=== PATIENT | male | born 1970 | race Caucasian/White ===

== ENCOUNTER 2019-12-16 14:23 | Observation (INO) ==
[2019-12-16 15:24] LABS: Basophils # 0.1 K/mcL (0.0-0.2); Basophils % 0.5 %; Eosinophils # 0.1 K/mcL (0.0-0.6); Eosinophils % 0.6 %; Hematocrit 40.9 % (37.5-50.1); Hemoglobin 13.5 g/dL (12.9-16.9); Immature Granulocytes % 0.6 % (0-4); Lymphocytes # 1.8 K/mcL (0.6-4.6); Lymphocytes % 16.9 %; Mean Corpuscular Hemoglobin 29.8 pg (28.0-33.3); Mean Corpuscular Volume 90.3 fL (83.0-100.0); Mean Platelet Volume 9.1 fL (9.4-12.4); Neutrophils # 7.6 K/mcL (1.6-8.9); Platelet Count 339 K/mcL (140-400); Red Blood Count 4.53 M/mcL (4.19-5.50); Red Cell Distribution Width 12.7 % (11.5-14.5); Segmented Neutrophils % 72.4 %; White Blood Count 10.5 K/mcL (4.3-11.1)
[2019-12-16 15:25] LABS: Prothrombin Time 11.1 Seconds (9.4-12.1)
[2019-12-16] MEDS ORDERED: *HR* Metoprolol 5 MG/5 ML VIAL IVP ONE (15:26)
[2019-12-16 15:41] LABS: Albumin 4.4 g/dL (3.5-5.7); Albumin/Globulin Ratio 1.6 (1.1-2.2); Bilirubin,Indirect 0.3 mg/dL (0.0-1.0); Bilirubin,Total 0.3 mg/dL (0.3-1.0); Globulin 2.7 g/dL (2.4-3.5); Total Protein 7.1 g/dL (6.4-8.9)
[2019-12-16 15:43] LABS: BUN/Creatinine Ratio 21 (6-26); Blood Urea Nitrogen 18 mg/dL (6-20); Calcium 9.9 mg/dL (8.6-10.3); Carbon Dioxide 25 mEq/L (23-29); Chloride 106 mEq/L (98-107); Glucose 100 mg/dL (70-105); Osmolality,Calculated 294 (280-300); Potassium 3.7 mEq/L (3.5-5.1); Sodium 141 mEq/L (136-145); eGFR For African Americans > 60 (> 60); eGFR For Non-African Americans > 60 (> 60)
[2019-12-16 15:44] LABS: Troponin I < 0.03 ng/mL (< 0.04)
[2019-12-16 15:59] LABS: Magnesium 2.2 mg/dL (1.6-2.6)
[2019-12-16] MEDS ORDERED: Naloxone 0.4 MG/ML INJ IVP PRN (17:14)
[2019-12-16] MEDS ORDERED: amLODIPine 5 MG TABLET PO SCH (17:15)
[2019-12-16] MEDS ORDERED: *HR* Labetalol 20 MG/4 ML SYRINGE IVP PRN (17:18)
[2019-12-16] MEDS ORDERED: *HR* Labetalol 20 MG/4 ML SYRINGE IVP ONE (17:18)
[2019-12-16] MEDS ORDERED: Perflutren Lipid Microsphere 1.3 ML in 0.9 % Sodium Chloride 8.7 ML IVP PRN (17:45)
[2019-12-16] MEDS ORDERED: Acetaminophen 325 MG TABLET PO PRN (17:46)
[2019-12-16] MEDS ORDERED: Ondansetron 4 MG/2 ML VIAL IVP PRN (17:47)
[2019-12-16] MEDS: *HR* Heparin 5,000 UNIT/ML VIAL SQ SCH (18:56)
[2019-12-16] MEDS: amLODIPine 5 MG TABLET PO SCH (18:57)
[2019-12-17 05:16] LABS: Basophils % 0.5 %; Eosinophils # 0.1 K/mcL (0.0-0.6); Eosinophils % 1.4 %; Hematocrit 40.4 % (37.5-50.1); Hemoglobin 12.6 g/dL (12.9-16.9); Immature Granulocytes % 0.5 % (0-4); Lymphocytes # 2.8 K/mcL (0.6-4.6); Lymphocytes % 32.5 %; Mean Corpuscular HGB Conc 31.2 g/dL (31.6-35.5); Mean Corpuscular Hemoglobin 28.7 pg (28.0-33.3); Monocytes # 0.9 K/mcL (0.0-1.3); Monocytes % 10.1 %; Neutrophils # 4.8 K/mcL (1.6-8.9); Platelet Count 327 K/mcL (140-400); Red Blood Count 4.39 M/mcL (4.19-5.50); Red Cell Distribution Width 12.8 % (11.5-14.5); White Blood Count 8.7 K/mcL (4.3-11.1)
[2019-12-17 05:34] LABS: BUN/Creatinine Ratio 17 (6-26); Blood Urea Nitrogen 15 mg/dL (6-20); Calcium 9.2 mg/dL (8.6-10.3); Carbon Dioxide 27 mEq/L (23-29); Chloride 105 mEq/L (98-107); Glucose 104 mg/dL (70-105); Magnesium 2.1 mg/dL (1.6-2.6); Osmolality,Calculated 293 (280-300); Phosphorous 4.2 mg/dL (2.7-4.5); Sodium 141 mEq/L (136-145); eGFR For African Americans > 60 (> 60); eGFR For Non-African Americans > 60 (> 60)
[2019-12-17 05:37] LABS: Troponin I < 0.03 ng/mL (< 0.04)
[2019-12-17] MEDS: *HR* Heparin 5,000 UNIT/ML VIAL SQ SCH (05:43)
[2019-12-17] MEDS: amLODIPine 5 MG TABLET PO SCH (08:46)
[2019-12-17 09:42] LABS: Chol/HDL Ratio 5.2 (0-4.9); Cholesterol 256 mg/dL (< 200); HDL Cholesterol 49 mg/dL (40-59); LDL Cholesterol,Calculated 183 mg/dL (< 100); Triglycerides 119 mg/dL (< 150)
[2019-12-17 10:04] VITALS: BP 129/89
== END 2019-12-17 14:01 | disposition home or self-care (01) ==
LOC: 3BNU 14:23 → EMEROOARM 14:23 → SUATTDRO 17:11 → 3BNU 18:25
PROVIDERS: ADMIT Student in an Organized Health Care Education/Training Program; ATTEND Nurse Practitioner Adult Health